=== PATIENT | male | born 1930 | race Caucasian/White ===

== ENCOUNTER → 2016-12-23 | Outpatient (CLI) | payer BC ==
[2016-12-23 18:44] LABS: BASO % 0.4 %; BASO ABS # 0.02 K/uL (0-0.2); COMPLETE YES; EOS % 5.2 %; HEMATOCRIT 44.4 % (42-52); IG% 0.4 %; LYMPH % 13.7 %; LYMPH ABS # 0.63 K/uL (1.2-3.4); MEAN CELL VOLUME 85.9 fL (80-100); MEAN CORPUSCULAR HEMOGLOBIN 28.4 pg (25-34); MEAN CORPUSCULAR HGB CONC 33.1 g/dl (32-36); MEAN PLATELET VOLUME 10.5 fL (7.4-10.4); MONO % 12.4 %; NEUT % 67.9 %; PLATELET COUNT 138 K/uL (130-400); RED BLOOD COUNT 5.17 M/uL (4.7-6.1); WHITE BLOOD COUNT 4.59 K/uL (4.8-10.8)
[2016-12-23 18:51] LABS: INR 3.5 (0.9-1.1); PROTHROMBIN TIME (PATIENT) 39.2 SECONDS (9.0-12.0)
[2016-12-23 18:55] LABS: ALB/GLOB RATIO 0.8 (0.9-2); ALT/SGPT 24 U/L (12-78); AST/SGOT 20 U/L (15-37); BLOOD UREA NITROGEN 23 mg/dl (7-18); BUN/CREATININE RATIO 16.5 (10-20); CALCIUM 8.4 mg/dl (8.5-10.1); CARBON DIOXIDE 28 mmol/L (21-32); CHLORIDE 109 mmol/L (98-107); CHOLESTEROL 185 mg/dl (0-200); CHOLESTEROL/HDL RATIO 6.9; GLUCOSE 87 mg/dl (70-99); HDL CHOLESTEROL 27 mg/dl; POTASSIUM 4.2 mmol/L (3.5-5.1); SODIUM 144 mmol/L (136-145)
[2016-12-23 18:56] LABS: ALKALINE PHOSPHATASE 111 U/L (45-117); LDL CHOLESTEROL CALCULATED 118 mg/dl; TRIGLYCERIDES 200 mg/dl (0-150); VERY LOW DENSITY LIPOPROT CALC 40 mg/dl
== END | disposition home or self-care (01) ==
LOC: C.LABSPEC 10:38
PROVIDERS: ATTEND Family Medicine
DX: I10 Essential (primary) hypertension (principal); E78.2 Mixed hyperlipidemia; I73.9 Peripheral vascular disease, unspecified; Z51.81 Encounter for therapeutic drug level monitoring; Z79.01 Long term (current) use of anticoagulants

== ENCOUNTER → 2017-07-06 | Outpatient (CLI) | payer BC ==
[2017-07-06 18:14] LABS: BASO % 0.2 %; BASO ABS # 0.01 K/uL (0-0.2); COMPLETE YES; EOS % 6.4 %; HEMATOCRIT 44.6 % (42-52); IG% 0.4 %; LYMPH % 12.6 %; LYMPH ABS # 0.67 K/uL (1.2-3.4); MEAN CELL VOLUME 87.1 fL (80-100); MEAN CORPUSCULAR HEMOGLOBIN 29.7 pg (25-34); MEAN CORPUSCULAR HGB CONC 34.1 g/dl (32-36); MEAN PLATELET VOLUME 10.3 fL (7.4-10.4); MONO % 10.7 %; NEUT % 69.7 %; PLATELET COUNT 134 K/uL (130-400); RED BLOOD COUNT 5.12 M/uL (4.7-6.1); WHITE BLOOD COUNT 5.32 K/uL (4.8-10.8)
[2017-07-06 18:19] LABS: INR 3.4 (0.9-1.1); PROTHROMBIN TIME (PATIENT) 37.7 SECONDS (9.0-12.0)
[2017-07-06 18:24] LABS: ALT/SGPT 22 U/L (12-78); AST/SGOT 13 U/L (15-37); BLOOD UREA NITROGEN 33 mg/dl (7-18); BUN/CREATININE RATIO 21.7 (10-20); CALCIUM 8.3 mg/dl (8.5-10.1); CARBON DIOXIDE 25 mmol/L (21-32); CHLORIDE 108 mmol/L (98-107); CHOLESTEROL 194 mg/dl (0-200); GLUCOSE 97 mg/dl (70-99); POTASSIUM 4.2 mmol/L (3.5-5.1); SODIUM 141 mmol/L (136-145)
[2017-07-06 18:26] LABS: ALB/GLOB RATIO 0.9 (0.9-2); ALKALINE PHOSPHATASE 97 U/L (45-117); CHOLESTEROL/HDL RATIO 7.8; HDL CHOLESTEROL 25 mg/dl; LDL CHOLESTEROL CALCULATED 108 mg/dl; TRIGLYCERIDES 304 mg/dl (0-150); VERY LOW DENSITY LIPOPROT CALC 61 mg/dl
== END | disposition home or self-care (01) ==
LOC: C.LABSPEC 17:47
PROVIDERS: ATTEND Family Medicine
DX: Z00.00 Encounter for general adult medical examination without abnormal findings (principal); I10 Essential (primary) hypertension; E78.2 Mixed hyperlipidemia; I73.9 Peripheral vascular disease, unspecified